=== PATIENT | male | born 1960 | race Caucasian/White ===

== ENCOUNTER 2016-07-25 15:38 | Emergency (ER) | payer MEDICAID ==
[2016-07-25 15:43] VITALS: TEMP 98.2
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
[2016-07-25] MEDS ORDERED: SULFAMETHOX/TMP 800/160 MG 1 TAB PO ONE (17:29)
[2016-07-25] MEDS ORDERED: CEPHALEXIN 500 MG CAP PO ONE (17:29)
[2016-07-25 18:52] LABS: WBC, SYNOVIAL FLUID 70904 /mm3 (0-150)
[2016-07-25 18:59] VITALS: BP 153/103; PULSE 115; RESP 14; O2SAT 97
== END 2016-07-25 18:59 | disposition home or self-care (01) ==
PROC: 0M933ZZ Drainage of Right Elbow Bursa and Ligament, Percutaneous Approach (ICD-10-PCS; principal; 2016-07-25)
DX: S52.021A Displaced fracture of olecranon process without intraarticular extension of right ulna, initial encounter for closed fracture (principal); I10 Essential (primary) hypertension; V29.40XA Motorcycle driver injured in collision with unspecified motor vehicles in traffic accident, initial encounter; Y92.410 Unspecified street and highway as the place of occurrence of the external cause; Y99.8 Other external cause status; Y93.89 Activity, other specified
CPT/HCPCS: A4565